=== PATIENT | male | born 1955 | race Asian ===

== ENCOUNTER 2018-09-21 10:41 | Emergency (ER) | payer BC ==
[~2018-09-21] VITALS: Ht 180.3 cm; Wt 59.0 kg
[2018-09-21 10:44] VITALS: Ht 180.3 cm; Wt 59.0 kg
[2018-09-21 12:13] VITALS: BP 126/76
== END 2018-09-21 12:13 | disposition home or self-care (01) ==
LOC: ED 10:41
DX: S51.811A Laceration without foreign body of right forearm, initial encounter (principal); W26.8XXA Contact with other sharp object(s), not elsewhere classified, initial encounter; Y93.89 Activity, other specified; Y92.89 Other specified places as the place of occurrence of the external cause; Y99.8 Other external cause status
CPT/HCPCS: 90715; J2001; Q0092

== ENCOUNTER 2018-09-23 17:09 | Emergency (ER) | payer BC ==
[~2018-09-23] VITALS: Ht 170.2 cm; Wt 63.0 kg
[2018-09-23 17:24] VITALS: BP 162/84; Ht 170.2 cm; Wt 63.0 kg
== END 2018-09-23 17:35 | disposition home or self-care (01) ==
LOC: ED 17:09
DX: S51.811D Laceration without foreign body of right forearm, subsequent encounter (principal); X58.XXXD Exposure to other specified factors, subsequent encounter